=== PATIENT | male | born 1980 | race African-American/Black ===

== ENCOUNTER 2016-11-10 18:01 | Emergency (ER) | payer OTHER ==
[~2016-11-10] VITALS: Ht 182.9 cm; Wt 117.9 kg
[~2016-11-10 18:01] MED LIST: ACETAMINOPHEN-1 EAC1 ORAL; IBUPROFEN600 MG ORAL; INDOMETHACIN75 MG ORAL; KEFLEX500 MG ORAL; NEURONTIN100 MG ORAL; NKM; PREDNISONE20 MG ORAL
[2016-11-10 18:19] VITALS: BP 136/81
[2016-11-10] MEDS ORDERED: Ketorolac 30mg Inj IV ONE (18:45)
[2016-11-10] MEDS ORDERED: Metoclopramide 10mg/10ml Liq ORAL ONE (18:45)
[2016-11-10] MEDS ORDERED: Ketorolac 30mg Inj IM ONE (19:00)
[2016-11-10] MEDS ORDERED: IBUPROFEN600 MG ORAL (19:20)
[2016-11-10] MEDS ORDERED: ZOFRAN4 M3 ORAL (19:20)
[2016-11-10 19:28] VITALS: BP 139/78
[2016-11-10 19:29] VITALS: BP 139/78
--- NOTE | 2016-11-10 22:52 | Emergency Room Report ---
History of Present Illness General Chief Complaint: Headache Source: Patient Present Illness HPI The patient is a 36-year-old male with a recently diagnosed multiple sclerosis presenting for right-sided headache which began yesterday. The patient states that he has been prescribed Neurontin and Tylenol #3 for pain which usually helps but it has not helped for this headache. The patient denies any known provoking factor. Patient states the pain was a 9/10 sharp sensation localized to the right side. The patient denies any other symptoms including nausea, vomiting, neck pain or stiffness, dizziness, blurred vision, weakness or fatigue , chest pain, shortness of breath Allergies: Coded Allergies: Cultivated Oat Pollen (Verified Allergy, Intermediate, 08/18/16) Dust (Verified Allergy, Intermediate, 08/18/16) Patient History Past Medical History: see triage record Pertinent Family History: none Reviewed Nursing Documentation: PMH: Agreed, PSxH: Agreed Nursing Documentation-PMH Past Medical History: No History, Except For Review of Systems All Other Systems: negative except mentioned in HPI Physical Exam Vital Signs Date Time Temp Pulse Resp B/P Pulse Ox O2 Delivery O2 Flow Rate FiO2 11/10/16 18:14 101.8 120 18 136/81 97 Room Air Sp02 EP Interpretation: reviewed, normal General Appearance: no apparent distress, alert, GCS 15, non-toxic Head: normocephalic, atraumatic Eyes: bilateral eye PERRL, bilateral eye normal inspection ENT: hearing grossly normal, normal pharynx, no angioedema, normal voice Neck: full range of motion, supple/symm/no masses Respiratory: chest non-tender, lungs clear, normal breath sounds, speaking full sentences Musculoskeletal: back normal, gait/station normal, normal range of motion, non- tender Neurologic: alert, oriented x3, responsive, motor strength/tone normal, sensory intact, speech normal Psychiatric: judgement/insight normal, memory normal, mood/affect normal, no suicidal/homicidal ideation Reflexes: 3+ bicep (R), 3+ bicep (L), 3+ tricep (R), 3+ tricep (L), 3+ knee (R) , 3+ knee (L) Skin: normal color, no rash, warm/dry, well hydrated Lymphatic: no adenopathy Medical Decision Making PA Attestation Dr. Lucas is my supervising physician. Patient management was discussed with my supervising physician Diagnostic Impression: Primary Impression: Headache ER Course The patient is a 36-year-old male with a recently diagnosed multiple sclerosis presenting for right-sided headache Differential diagnoses include but not limited to Migraine, tension headache, meningitis PE: The patient is febrile. No apparent distress HEENT: Unremarkable. PERRL. Head non tender. No lymphadenopathy. Neck is soft and supple. Full active range of motion. CN II-XII intact. The patient is given a shot of Toradol And Reglan and states that he is feeling better. The patient will be discharged home with a prescription for Motrin and will follow up with neurologist. ER precautions are given Last Vital Signs Date Time Temp Pulse Resp B/P Pulse Ox O2 Delivery O2 Flow Rate FiO2 11/10/16 19:29 101.8 109 16 139/78 98 Room Air Status: improved Disposition: HOME, SELF-CARE Condition: Improved Scripts Ondansetron* (ZOFRAN*) 4 Mg Tablet 4 MG ORAL Q6H Y for Nausea & Vomiting, #15 TAB Prov: JOSE NORIEGA 11/10/16 Ibuprofen* (MOTRIN*) 600 Mg Tablet 600 MG ORAL Q8H Y for For Pain, #30 TAB 0 Refills Prov: JOSE NORIEGA.ACatalino 11/10/16 Patient Instructions: General Headache Without Cause Additional Instructions: I discussed my findings with the patient. All questions and concerns have been answered. Treatment and medication compliance have been addressed. I advised the patient that they need to follow up with PMD in 3-5 days. Return to ED if symptoms worsen, new symptoms arise, or if needed for any reason. Patient verbalized understanding of discharge instructions. JOSE NORIEGA Nov 10, 2016 22:52
== END 2016-11-10 19:31 | disposition home or self-care (01) ==
LOC: EMR 18:29
DX: R51 Headache (principal); Z91.048 Other nonmedicinal substance allergy status
CPT/HCPCS: 96372; 99284; J1885

== ENCOUNTER 2017-05-21 02:43 | Emergency (ER) | payer OTHER ==
[~2017-05-21] VITALS: Ht 182.9 cm; Wt 117.9 kg
[~2017-05-21 02:43] MED LIST changes: +ZOFRAN4 M3 ORAL
[2017-05-21 02:58] VITALS: BP 113/73
[2017-05-21] MEDS ORDERED: BACTRIM DS TAB1 EAC1 ORAL (03:25)
--- NOTE | 2017-05-21 03:26 | Emergency Room Report ---
History of Present Illness General Chief Complaint: General Complaint Source: Patient Present Illness HPI This is a 37-year-old male who presents with swelling to the scalp. His been there for a couple weeks. It was more swollen but better now. Denies any fever chills denies any trauma. Tender to palpation. He has a history of multiple sclerosis and think this may be related to it. No other complaint. Allergies: Coded Allergies: Cultivated Oat Pollen (Verified Allergy, Intermediate, 08/18/16) Dust (Verified Allergy, Intermediate, 08/18/16) Patient History Past Medical History: see triage record, old chart reviewed, other - MS Past Surgical History: none Pertinent Family History: none Social History: Denies: smoking Immunizations: other Reviewed Nursing Documentation: PMH: Agreed, PSxH: Agreed Nursing Documentation-PMH Past Medical History: No History, Except For Review of Systems Eye: Denies: blurred vision, eye pain ENT: Denies: ear pain, nose congestion, throat swelling Respiratory: Denies: cough, shortness of breath Cardiovascular: Denies: chest pain, palpitations Gastrointestinal: Denies: abdominal pain, diarrhea, nausea, vomiting Musculoskeletal: Denies: back pain, joint pain Skin: Denies: rash Neurological: Denies: headache, numbness Endocrine: Denies: increased thirst, increased urine Hematologic/Lymphatic: Denies: easy bruising All Other Systems: negative except mentioned in HPI Physical Exam Vital Signs Date Time Temp Pulse Resp B/P Pulse Ox O2 Delivery O2 Flow Rate FiO2 05/21/17 02:48 98.1 74 16 113/73 99 Room Air vitals normal Sp02 EP Interpretation: reviewed, normal General Appearance: well appearing, no apparent distress, alert Head: normocephalic, atraumatic, other - He has a fluctuant area of 2 cm to the frontal scalp area just above the forehead. Eyes: bilateral eye EOMI, bilateral eye PERRL ENT: hearing grossly normal, normal pharynx Neck: full range of motion, supple, no meningismus Respiratory: chest non-tender, lungs clear, normal breath sounds Cardiovascular #1: regular rate, rhythm, no murmur Gastrointestinal: normal bowel sounds, non tender, no mass, no organomegaly, no bruit, non-distended Musculoskeletal: back normal, gait/station normal, normal range of motion Psychiatric: mood/affect normal Skin: warm/dry Procedures Incision and Drainage Incision and Drainage : Consent: Verbal Site: Scalp Blade Size: 11 Wound Location: head Wound Explored: clean Anesthesia: 1% Lidocaine Volume Anesthetic (ccs): 3 Patient Tolerated: Well Complications: None Progress Local anesthetic of 1% lidocaine without epinephrine. I made a 1 cm elliptical incision. There is scant amount of pus. There was moderate amount of sebaceous cyst material expressed. I removed part of the capsule. Wound Was bleeding. 2 interrupted 3-0 Prolene suture. Patient tolerated procedure without a problem. Medical Decision Making Diagnostic Impression: Primary Impression: Infected sebaceous cyst ER Course Patient with a sebaceous cyst. No evidence of deep infection. No evidence of neoplastic process. We'll discharge home. Last Vital Signs Date Time Temp Pulse Resp B/P Pulse Ox O2 Delivery O2 Flow Rate FiO2 05/21/17 02:58 98.1 74 16 113/73 99 Room Air Status: improved Disposition: HOME, SELF-CARE Condition: Stable Scripts Trimethoprim/Sulfamethoxazole 160/800* (BACTRIM DS TABLET*) 1 Each Tablet 1 TAB ORAL Q12H, #14 TAB 0 Refills Prov: JENAE GONZALEZ M.D. 05/21/17 Referrals: [facility] (PCP) Additional Instructions: Suture out in 5-7 days. Keep wound clean. Return if symptom worsen. Followup with your DrCatalino in 7 days. JENAE GONZALEZ M.D. May 21, 2017 03:26
[2017-05-21] MEDS ORDERED: Norco 5mg/325mg tab ONE (03:33)
[2017-05-21 03:39] VITALS: BP 113/73
[2017-05-21] MEDS ORDERED: Norco 5mg/325mg tab ORAL ONE (03:45)
== END 2017-05-21 03:39 | disposition home or self-care (01) ==
LOC: EMR 03:00
DX: L72.3 Sebaceous cyst (principal)
CPT/HCPCS: 10060; 99283

== ENCOUNTER 2017-11-22 06:37 | Emergency (ER) | payer OTHER ==
[~2017-11-22] VITALS: Ht 182.9 cm; Wt 117.9 kg
[~2017-11-22 06:37] MED LIST changes: +BACTRIM DS TAB1 EAC1 ORAL
[2017-11-22] MEDS ORDERED: TECFIDERA240 MG PO (06:45)
[2017-11-22 06:56] VITALS: BP 112/76
[2017-11-22] MEDS ORDERED: Morphine Sulfate 2mg/ml Inj IVP ONE (07:00)
--- NOTE | 2017-11-22 07:23 | Emergency Room Report ---
History of Present Illness General Chief Complaint: Abdominal Pain Source: Patient Present Illness HPI The patient presents with abdominal pain. The has been going on for 3 days. It started after he took a dietary supplement to burn fat. This caused him to have cramping at that time and also bloating. He never taken the medicine for a period he says and diarrhea. He has urged to move his bowels but doesn't move very much stool. There's no blood. He's been vomiting also. Feels nauseated now. He states the pain is constant at 3/10 but sometimes he has cramps that are diffuse there are about 8/10. He denies any fevers or chills. There's no sore throat, cough, chest pain. There is no blood in his vomit and no melena or hematochezia. He took ibuprofen before coming in. He's not sure if it's helping. The pain is in his lower abdomen but then when he has crampiness is diffuse. No travel, ill contacts. No prior surgery. 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 Nursing Documentation: PMH: Agreed, PSxH: Agreed Review of Systems All Other Systems: negative except mentioned in HPI Physical Exam Vital Signs Date Time Temp Pulse Resp B/P (MAP) Pulse Ox O2 Delivery O2 Flow Rate FiO2 11/22/17 06:39 97.9 88 16 112/76 95 Room Air Sp02 EP Interpretation: reviewed, normal General Appearance: well appearing, no apparent distress, GCS 15 Head: normocephalic Eyes: bilateral eye normal inspection ENT: moist mucus membranes Neck: supple Respiratory: lungs clear, normal breath sounds Cardiovascular #1: regular rate, rhythm Cardiovascular #2: 2+ radial (R) Gastrointestinal: normal inspection, normal bowel sounds, no mass, non- distended, no rebound, guarding - LLQ, tenderness - reported Musculoskeletal: back normal, gait/station normal, normal range of motion Neurologic: alert, oriented x3, grossly normal Psychiatric: mood/affect normal Skin: normal inspection, warm/dry Medical Decision Making Diagnostic Impression: Primary Impression: Abdominal pain Qualified Codes: R10.32 - Left lower quadrant pain Additional Impression: Adverse drug reaction Qualified Codes: T88.7XXA - Unspecified adverse effect of drug or medicament, initial encounter ER Course Patient presents with 3 days of abdominal pain vomiting and loose stools after taking a [id number] medication. Differential includes gastroenteritis, gastritis, pancreatitis, diverticulitis, adverse drug reaction, UTI, renal stone amongst others. He'll be evaluated with abdominal films and labs appeared he would be treated with IV hydration, Pepcid, Zofran and morphine. He does not have a surgical abdomen at this time but does have significant pain Campy nature suggest more colitis. Labs with normal WBC, H/H, CMP and lipase. Normal UA. Still significant pain. Arranging for ride. Opiates given. Still with LLQ guarding and significant pain. CT ordered. Concerned about diverticulitis or other colitis, mass, stone. CT normal. Now improved pain. Patient stable for outpatient observation and treatment. Laboratory Tests Test 11/22/17 07:05 11/22/17 08:45 White Blood Count 6.2 K/UL (4.8-10.8) Red Blood Count 5.91 M/UL (4.70-6.10) Hemoglobin 17.2 G/DL (14.2-18.0) Hematocrit 50.9 % (42.0-52.0) Mean Corpuscular Volume 86 FL (80-99) Mean Corpuscular Hemoglobin 29.1 PG (27.0-31.0) Mean Corpuscular Hemoglobin Concent 33.8 G/DL (32.0-36.0) Red Cell Distribution Width 13.5 % (11.6-14.8) Platelet Count 193 K/UL (150-450) Mean Platelet Volume 10.5 FL (6.5-10.1) H Neutrophils (%) (Auto) 50.3 % (45.0-75.0) Lymphocytes (%) (Auto) 34.8 % (20.0-45.0) Monocytes (%) (Auto) 11.9 % (1.0-10.0) H Eosinophils (%) (Auto) 2.1 % (0.0-3.0) Basophils (%) (Auto) 0.9 % (0.0-2.0) Prothrombin Time 10.9 SEC (9.30-11.50) Prothrombin Time INR 1.0 (0.9-1.1) PTT 31 SEC (23-33) Sodium Level 137 MMOL/L (136-145) Potassium Level 3.7 MMOL/L (3.5-5.1) Chloride Level 105 MMOL/L (98-107) Carbon Dioxide Level 25 MMOL/L (21-32) Anion Gap 7 mmol/L (5-15) Blood Urea Nitrogen 9 mg/dL (7-18) Creatinine 1.1 MG/DL (0.55-1.30) Estimate Glomerular Filtration Rate > 60 mL/min (>60) Glucose Level 106 MG/DL (74-106) Calcium Level 8.6 MG/DL (8.5-10.1) Total Bilirubin 0.4 MG/DL (0.2-1.0) Aspartate Amino Transferase (AST) 17 U/L (15-37) Alanine Aminotransferase (ALT) 38 U/L (12-78) Alkaline Phosphatase 65 U/L (46-116) Total Protein 7.4 G/DL (6.4-8.2) Albumin 3.5 G/DL (3.4-5.0) Globulin 3.9 g/dL Albumin/Globulin Ratio 0.9 (1.0-2.7) L Lipase 102 U/L (73-393) Urine Color Yellow Urine Appearance Clear Urine pH 6 (4.5-8.0) Urine Specific [place] 1.025 (1.005-1.035) Urine Protein 1+ (NEGATIVE) H Urine Glucose (UA) Negative (NEGATIVE) Urine Ketones Negative (NEGATIVE) Urine Occult Blood 1+ (NEGATIVE) H Urine Nitrite Negative (NEGATIVE) Urine Bilirubin Negative (NEGATIVE) Urine Urobilinogen 4 MG/DL (0.0-1.0) H Urine Leukocyte Esterase Negative (NEGATIVE) Urine RBC 2-4 /HPF (0 - 0) H Urine WBC 0-2 /HPF (0 - 0) Urine Squamous Epithelial Cells Occasional /LPF Urine Bacteria None /HPF (NONE) Urine Mucus Few /LPF (NONE/OCC) H Rhythm Strip Diag. Results Rhythm: NSR, no PVC's, no ectopy Other X-Ray Diagnostic Results Other X-Ray Diagnostic Results : X-Ray ordered: abd # of Views/Limited Vs Complete: 2 View Indication: Pain Interpretation: nonspecific bowel gas, no sbo, other - no calcifications Impression: Other Electronically Signed by: Lionel Hahn MD CT/MRI/US Diagnostic Results CT/MRI/US Diagnostic Results : Imaging Test Ordered: ct abd pelvis Impression no colonic pathology, stones, masses Impression: Fatty liver No acute process Incidental finding right renal cyst Last Vital Signs Date Time Temp Pulse Resp B/P (MAP) Pulse Ox O2 Delivery O2 Flow Rate FiO2 11/22/17 11:21 72 20 123/88 100 Room Air 11/22/17 10:52 98.5 Status: improved Disposition: HOME, SELF-CARE Condition: Improved Scripts Famotidine (PEPCID) 20 Mg Tablet 20 MG ORAL DAILY, #14 TAB 0 Refills Prov: Lionel Hahn M.D. 11/22/17 Tramadol Hcl* (ULTRAM*) 50 Mg Tablet 50 MG ORAL Q6H Y for For Pain, #8 TAB 0 Refills Prov: Lionel Hahn M.D. 11/22/17 Phenobarb/Hyoscy/Atropine/Scop ( Tablet) 16.2 Mg Tablet 1 TAB ORAL THREE TIMES A DAY Y for abdominal cramps, #10 TAB 0 Refills Prov: Lionel Hahn M.D. 11/22/17 Referrals: [facility] (PCP) Lionel Hahn M.D. Nov 22, 2017 07:23
[2017-11-22 07:26] VITALS: BP 121/78
[2017-11-22 07:52] LABS: ANION GAP 7 mmol/L (5-15); BLOOD UREA NITROGEN 9 mg/dL (7-18); CALCIUM 8.6 MG/DL (8.5-10.1); CARBON DIOXIDE 25 MMOL/L (21-32); CHLORIDE 105 MMOL/L (98-107); CREATININE 1.1 MG/DL (0.55-1.30); POTASSIUM 3.7 MMOL/L (3.5-5.1); SODIUM 137 MMOL/L (136-145)
[2017-11-22 07:58] LABS: ALANINE AMINOTRANSFERASE 38 U/L (12-78); ALBUMIN 3.5 G/DL (3.4-5.0); ALBUMIN/GLOBULIN RATIO 0.9 (1.0-2.7); ALKALINE PHOSPHATASE 65 U/L (46-116); ASPARTATE AMINO TRANSFERASE 17 U/L (15-37); BILIRUBIN,TOTAL 0.4 MG/DL (0.2-1.0)
[2017-11-22 08:03] LABS: BASOPHILS % (AUTO) 0.9 % (0.0-2.0); EOSINOPHILS % (AUTO) 2.1 % (0.0-3.0); HEMATOCRIT 50.9 % (42.0-52.0); HEMOGLOBIN 17.2 G/DL (14.2-18.0); LYMPHOCYTES % (AUTO) 34.8 % (20.0-45.0); MEAN CORPUSCULAR VOLUME 86 FL (80-99); MONOCYTES % (AUTO) 11.9 % (1.0-10.0); NEUTROPHILS % (AUTO) 50.3 % (45.0-75.0); PLATELET COUNT 193 K/UL (150-450); RED BLOOD COUNT 5.91 M/UL (4.70-6.10); RED CELL DISTRIBUTION WIDTH 13.5 % (11.6-14.8); WHITE BLOOD COUNT 6.2 K/UL (4.8-10.8)
[2017-11-22 09:26] LABS: APPEARANCE,URINE CLEAR; BILIRUBIN, URINE NEGATIVE (NEGATIVE); GLUCOSE, URINE (UA) NEGATIVE (NEGATIVE); KETONES,URINE NEGATIVE (NEGATIVE); LEUKOCYTE ESTERASE ,URINE NEGATIVE (NEGATIVE); NITRITE,URINE NEGATIVE (NEGATIVE); PH,URINE 6 (4.5-8.0); PROTEIN,URINE 1+ (NEGATIVE); UROBILINOGEN,URINE 4 MG/DL (0.0-1.0)
[2017-11-22 09:37] LABS: COLOR,URINE YELLOW
[2017-11-22] MEDS ORDERED: Morphine Sulfate 4mg/ml Inj IVP ONE (09:45)
--- NOTE | 2017-11-22 10:15 | Diagnostic Imaging Report ---
Indication: Abdominal pain Technique: Supine view of the abdomen Comparison: none Findings: Body habitus and use of portable technique limit evaluation. Bowel gas pattern is unremarkable. No unusual masses or calcifications Impression: No acute process
--- NOTE | 2017-11-22 10:42 | Diagnostic Imaging Report ---
Clinical Indication: Abdominal pain Technique: No oral contrast utilized, per emergency room physician request IV administration nonionic contrast. Venous phase spiral acquisition obtained through the abdomen and pelvis. Multiplanar reconstructions were generated. Total dose length product 1067.67 mGycm. CTDIvol(s) 19.28 mGy. Dose reduction achieved using automated exposure control Comparison: None Findings: No evidence of diverticulosis or diverticulitis. The appendix is normal. There are a few mildly prominent fluid-filled small bowel loops, but no hever small bowel distention. Distal esophagus, stomach, duodenum are unremarkable. No free or loculated intraperitoneal air or fluid is evident. The liver is diffusely hypoattenuating, consistent with fatty change. The gallbladder, bile ducts, pancreas, spleen, adrenals, left kidney are unremarkable. The right kidney demonstrates a 1 cm interpolar region cyst. No retroperitoneal or mesenteric mass or adenopathy. No pelvic mass or adenopathy. The included lung bases are clear. The bones are unremarkable. Impression: Fatty liver No acute process Incidental finding right renal cyst The CT scanner at [facility] is accredited by the [employer] [place] and the scans are performed using protocols designed to limit radiation exposure to as low as reasonably achievable to attain images of sufficient resolution adequate for diagnostic evaluation.
[2017-11-22 10:50] VITALS: BP 121/80
[2017-11-22] MEDS ORDERED: DONNATAL TAB1 TAB ORAL (11:11)
[2017-11-22] MEDS ORDERED: PEPCID20 MG ORAL (11:11)
[2017-11-22] MEDS ORDERED: TRAMADOL HCL50 MG ORAL (11:11)
[2017-11-22 11:21] VITALS: BP 123/88
== END 2017-11-22 11:28 | disposition home or self-care (01) ==
LOC: EMR 07:02
DX: R10.9 Unspecified abdominal pain (principal); T50.995A Adverse effect of other drugs, medicaments and biological substances, initial encounter; R11.10 Vomiting, unspecified; Y92.9 Unspecified place or not applicable; Z91.048 Other nonmedicinal substance allergy status
CPT/HCPCS: 36415; 74018; 74177; 80053; 81003; 83690; 85025; 85610; 85730; 96361; 96374; 96375; 96376; 99284; J2270; J2405; Q9967; S0028